=== PATIENT | male | born 1970 | race American Indian/Alaskan Native ===

== ENCOUNTER 2016-10-11 11:38 | Inpatient (IN) | payer OTHER ==
--- NOTE | 2016-10-11 12:27 | Emergency Department Report ---
Chief Complaint: Arrhythmia/Palpitations Stated Complaint: CHEST PAIN Time Seen by Provider: 10/11/16 12:22 - HPI History of Present Illness: Patient reports intermittent heart flutter that started years ago, however fluttering started last night and continued until this am - ROS Review of Systems: all other systems are unremarkable except for documentation in HPI - Exam Vital Signs: Vital Signs 10/11/16 11:57 Temperature 98.4 F Pulse Rate 78 Respiratory 18 Rate Blood Pressure 134/88 O2 Sat by Pulse 100 Oximetry Physical Exam: Gen: well developed and nourished, NAD Cardio: heart sounds present S1-S2, no ectopy, murmur or gallops Resp: even and unlabored, lungs CTA beatriz, no wheezes, rales or rhonchi MSE screening note: Focused history and physical exam performed. Due to findings the following was ordered: laboratory and radiology study ordered ED Disposition for MSE Condition: Stable
--- NOTE | 2016-10-11 13:03 | XRay Report ---
ROUTINE CHEST, TWO VIEWS: HISTORY: Dysrhythmia, palpitations. The trachea, heart, mediastinal contour, lung reinoso and bony thorax are unremarkable. IMPRESSION: Unremarkable chest x-ray.
[2016-10-11 13:14] LABS: Basophils % (Auto) 1.2 % (0.0-1.8); Hematocrit 46.7 % (35.5-45.6); Hemoglobin 15.5 gm/dl (11.8-15.2); Mean Corpuscular HGB Conc 33 % (32-34); Mean Corpuscular Hemoglobin 28 pg (28-32); Mean Corpuscular Volume 85 fl (84-94); Platelet Count 257 K/mm3 (140-440); Red Blood Count 5.47 M/mm3 (3.65-5.03); Red Cell Distribution Width 14.8 % (13.2-15.2); White Blood Count 5.6 K/mm3 (4.5-11.0)
[2016-10-11 13:25] LABS: INR 1.04 (0.87-1.13)
[2016-10-11 13:28] LABS: Creatine Kinase MB 1.5 ng/mL (0.0-4.0)
[2016-10-11 13:30] LABS: Alanine Aminotransferase 10 units/L (7-56); Albumin/Globulin Ratio 1.2 %; Alkaline Phosphatase 74 units/L (35-129); Bilirubin,Total 0.3 mg/dL (0.1-1.2); Blood Urea Nitrogen 8 mg/dL (9-20); Calcium 9.1 mg/dL (8.4-10.2); Carbon Dioxide 27 mmol/L (22-30); Chloride 98.9 mmol/L (98-107); Glucose 83 mg/dL (75-100); Potassium 4.3 mmol/L (3.6-5.0); Sodium 138 mmol/L (137-145); Total Protein 7.4 g/dL (6.3-8.2)
[2016-10-11 13:33] LABS: Anion Gap 16 mmol/L
[2016-10-11] MEDS ORDERED: NITRO-BID 2% TP ONE (22:21)
[2016-10-11] MEDS ORDERED: ASPIRIN PO ONE (22:22)
--- NOTE | 2016-10-11 22:35 | Emergency Department Report ---
HPI - General Chief Complaint: Arrhythmia/Palpitations Time Seen by Provider: 10/11/16 22:08 - HPI HPI: Room 18 The patient is a 46-year-old male presenting with a chief complaint of palpitations and chest discomfort. The patient states his heart has been "fluttering" for years but usually only lasts a couple seconds. The patient states last night the fluttering was prolonged lasting hours. It was still present when he awakened this morning. The patient complains of left chest discomfort when the fluttering is present and he breathes deeply. Patient denies shortness of breath and nausea/vomiting but does admit to occasional diaphoresis. The patient states he has never sought medical attention for the above complaints. Patient states he's never had a stress test or cardiac catheterization Location: Left chest Duration: [see above] Quality: Discomfort Severity: Currently 0/10 Modifying factors: [see above] Context: [see above] Mode of transportation: Unknown ED Past Medical Hx - Past Medical History Previous Medical History?: No - Surgical History Past Surgical History?: No - Family History Family history: no significant - Social History Smoking Status: Never Smoker (patient chews tobacco) Substance Use Type: None (denies illicit drug use), Alcohol (consumes 4-5 beers daily) - Medications Home Medications: Home Medications Medication Instructions Recorded Confirmed Last Taken Type No Known Home Medications [No 10/11/16 10/11/16 Unknown History Reported Home Medications] ED Review of Systems ROS: Stated complaint: CHEST PAIN Other details as noted in HPI Comment: All other systems reviewed and negative Constitutional: diaphoresis. denies: chills, fever Eyes: denies: eye pain, eye discharge, vision change ENT: denies: ear pain, throat pain Respiratory: denies: cough, shortness of breath, wheezing Cardiovascular: chest pain, palpitations Endocrine: no symptoms reported Gastrointestinal: denies: abdominal pain, nausea, diarrhea Genitourinary: denies: urgency, dysuria Musculoskeletal: denies: back pain, joint swelling, arthralgia Skin: denies: rash, lesions Neurological: denies: headache, weakness, paresthesias Psychiatric: denies: anxiety, depression Hematological/Lymphatic: denies: easy bleeding, easy bruising Physical Exam - Physical Exam Vital Signs: Vital Signs 10/11/16 10/11/16 10/11/16 11:57 21:15 21:35 Temperature 98.4 F 97.9 F Pulse Rate 78 61 68 Respiratory 18 18 18 Rate Blood Pressure 134/88 149/95 Blood Pressure 135/83 [Right] O2 Sat by Pulse 100 100 98 Oximetry Physical Exam: GENERAL: The patient is well-developed well-nourished male lying on stretcher not appearing to be in acute distress. [] HEENT: Normocephalic. Atraumatic. Extraocular motions are intact. Patient has moist mucous membranes. NECK: Supple. Trachea midline CHEST/LUNGS: Clear to auscultation. There is no respiratory distress noted. HEART/CARDIOVASCULAR: Regular. There is no tachycardia. There is no gallop rub or murmur. ABDOMEN: Abdomen is soft, nontender. Patient has normal bowel sounds. There is no abdominal distention. SKIN: There is no rash. There is no edema. There is no diaphoresis. NEURO: The patient is awake, alert, and oriented. The patient is cooperative. The patient has normal speech MUSCULOSKELETAL: There is no evidence of acute injury. ED Course Vital Signs 10/11/16 10/11/16 10/11/16 11:57 21:15 21:35 Temperature 98.4 F 97.9 F Pulse Rate 78 61 68 Respiratory 18 18 18 Rate Blood Pressure 134/88 149/95 Blood Pressure 135/83 [Right] O2 Sat by Pulse 100 100 98 Oximetry ED Medical Decision Making - Lab Data Result diagrams: 10/11/16 12:59 10/11/16 12:59 Laboratory Tests 10/11/16 10/11/16 10/11/16 12:59 12:59 12:59 WBC 5.6 RBC 5.47 H Hgb 15.5 H Hct 46.7 H MCV 85 MCH 28 MCHC 33 RDW 14.8 Plt Count 257 Lymph % (Auto) 27.6 [place] % (Auto) 9.1 H Eos % (Auto) 1.0 Baso % (Auto) 1.2 Lymph # 1.6 [place] # 0.5 Eos # 0.1 Baso # 0.1 Seg Neutrophils % 61.1 Seg Neutrophils # 3.4 PT 13.5 INR 1.04 APTT 30.0 Sodium 138 Potassium 4.3 Chloride 98.9 Carbon Dioxide 27 Anion Gap 16 BUN 8 L Creatinine 0.8 Estimated GFR > 60 BUN/Creatinine Ratio 10.00 Glucose 83 Calcium 9.1 Magnesium Total Bilirubin 0.3 AST 16 ALT 10 Alkaline Phosphatase 74 Total Creatine Kinase CK-MB (CK-2) CK-MB (CK-2) Rel Index Troponin T Total Protein 7.4 Albumin 4.0 Albumin/Globulin Ratio 1.2 10/11/16 10/11/16 12:59 15:34 WBC RBC Hgb Hct MCV MCH MCHC RDW Plt Count Lymph % (Auto) [place] % (Auto) Eos % (Auto) Baso % (Auto) Lymph # [place] # Eos # Baso # Seg Neutrophils % Seg Neutrophils # PT INR APTT Sodium Potassium Chloride Carbon Dioxide Anion Gap BUN Creatinine Estimated GFR BUN/Creatinine Ratio Glucose Calcium Magnesium 2.0 Total Bilirubin AST ALT Alkaline Phosphatase Total Creatine Kinase 133 CK-MB (CK-2) 1.5 CK-MB (CK-2) Rel Index 1.1 Troponin T < 0.010 Total Protein Albumin Albumin/Globulin Ratio - EKG Data -: EKG Interpreted by Me EKG shows normal: sinus rhythm Rate: normal - EKG Data When compared to previous EKG there are: previous EKG unavailable Interpretation: normal EKG - Radiology Data Radiology results: image reviewed (chest x-ray) interpreted by me: Chest x-ray- no focal infiltrates, no pneumothorax - Differential Diagnosis ACS, dysrhythmia, pericarditis, pneumothorax, pleurisy Critical care attestation.: If time is entered above; I have spent that time in minutes in the direct care of this critically ill patient, excluding procedure time. ED Disposition Clinical Impression: Chest pain, Palpitations Disposition: OP ADMITTED IP TO THIS HOSP Is pt being admited?: Yes Does the pt Need Aspirin: Yes Condition: Fair Instructions: Chest Pain (ED) Time of Disposition: 22:40 (hospitalist paged)
--- NOTE | 2016-10-12 00:26 | History and Physical Report ---
History of Present Illness Date of examination: 10/12/16 History of present illness: 38-year-old man with no medical problem comes emergency room with complaints of palpitations rate is been having palpitations since the age of 20, they were short-lived lasting for a few minutes. He was evaluated wands, he was told he needed surgery but he declined. Last night his palpitation has been constant so he came to the emergency room for evaluation. He denies chest pain, lightheadedness Patient denies chest pain, , shortness of breath, cough, abdominal pain, hematochezia, dysuria, frequency, focal weakness, dysarthria, fever chills, polydipsia polyuria, hot or cold intolerance, easy bruisability, or rash or bleeding from mucosal membrane, rhinorrhea, epistaxis, earache, tinnitus, blurry vision, eye discharge, anxiety, depression. Other review of systems negative PAST SURGICAL HISTORY: None SOCIAL HISTORY: Drinks sixpack of beer a day, quit tobacco use , no drugs FAMILY HISTORY: Hypertension Medications and Allergies Allergies Allergy/AdvReac Type Severity Reaction Status Date / Time No Known Allergies Allergy Verified 10/11/16 21:36 Home Medications Medication Instructions Recorded Confirmed Last Taken Type No Known Home Medications [No 10/11/16 10/11/16 Unknown History Reported Home Medications] Exam - Physical Exam Narrative exam: Gen. appearance: Patient lying in bed, no apparent distress HEENT: Normocephalic, atraumatic, pupils equally round and reactive to light, extraocular movement intact, and no sclericterus,. No JVD or thyromegaly or nodule,neck supple, no carotid bruit ,mucous membranes moist, no exudate or erythema Heart: S1, S2, regular rate and rhythm Lungs: Clear to auscultation bilaterally, breathing comfortable Abdomen: Positive bowel sounds, nontender, nondistended, no organomegaly Extremity: No edema, cyanosis, clubbing Skin: No rash, nodules, warm, dry Neuro: Oriented 3, cranial nerves II-12 intact, speech is fluent, motor and sensory intact - Constitutional Vitals: Temp Pulse Resp BP Pulse Ox 97.9 F 68 18 135/83 98 10/11/16 21:15 10/11/16 21:35 10/11/16 21:35 10/11/16 21:35 01/09/17 21:35 Results - Labs CBC & Chem 7: 10/11/16 12:59 10/11/16 12:59 Labs: Abnormal lab results 10/11/16 10/11/16 Range/Units 12:59 12:59 RBC 5.47 H (3.65-5.03) M/mm3 Hgb 15.5 H (11.8-15.2) gm/dl Hct 46.7 H (35.5-45.6) % [place] % (Auto) 9.1 H (0.0-7.3) % BUN 8 L (9-20) mg/dL - Imaging and Cardiology EKG: image reviewed Chest x-ray: report reviewed Assessment and Plan Palpitations Admits medicine Check cardiac enzymes, echo, TSH, consult cardiology Start DVT prophylaxis
--- NOTE | 2016-10-12 01:27 | Admit Criteria Form ---
Admission Criteria Documentation: CARDIOLOGY GRG Clinical Indications for Admission to Inpatient Care ( Place 'X' for any and all applicable criteria): Hospital admission is needed for appropriate care of the patient because of ANY ONE of the following (1): [ ] I. Hemodynamic instability as indicated by ALL of the following (1)(2)(3) (4)(5) [ ]a) Vital signs or other findings not as expected for chronic patient condition or baseline [ ]b) Instability indicated by ANY ONE of the following: [ ]i) Hypotension [ ]ii) Symptomatic Tachycardia unresponsive to treatment ( e.g., analgesia, fluids, sedation as indicated) [ ]iii) Inadequate perfusion indicated by ANY ONE of the following: [ ] 1) Lactic acidosis (> 2 mmol/L) [ ] 2) New abnormal capillary refill (> 3 seconds) [ ] 3) Reduced urine output [ ] 4) New altered mental status [ ]iv) Orthostatic vital sign changes unresponsive to treatment (e.g., fluids) [ ]v) IV inotropic or vasopressor medication required to maintain adequate blood pressure or perfusion [ ] II. Severe heart failure as indicated by ANY ONE of the following(17)(18) [ ]a) Respiratory distress [ ]b) Hypotension [ ]c) Anasarca (refractory to outpatient therapy) [ ]d) Cardiac arrhythmias of immediate concern [ ]e) Myocardial ischemia [ ] III. Cardiac arrhythmias or findings of immediate concern indicated by ANY ONE of the following (19)(20): [ ] a) Heart rhythms that are inherently dangerous or unstable indicated by ANY ONE of the following (21)(22)(23): [ ] i) Resuscitated ventricular fibrillation or cardiac arrest [ ] ii) Ventricular escape rhythm [ ] iii) Sustained ventricular tachycardia (30 seconds or more of ventricular rhythm at greater than 100 beats per minute) [ ] iv) Nonsustained ventricular tachycardia and ANY ONE of the following: [ ] 1) Suspected cardiac ischemia as cause or consequence of ventricular tachycardia [ ] 2) In setting of acute myocarditis [ ] b) Unstable cardiac conduction defects indicated by ANY ONE of the following(23)(24)(25) [ ] i) Type II second-degree atrioventricular block [ ]ii) Third-degree atrioventricular block [ ]iii) New-onset left bundle branch block with suspected myocardial ischemia [ ]c) Any heart rhythm and ANY ONE of the following (21)(22)(26)(27) (28) [ ] i) Continuous long-term ECG monitoring needed (e.g., initiation of drug requiring monitoring for more than 24 hours) [ ] ii) Patient has automatic implanted cardioverter defibrillator that is repeatedly firing, malfunctioning, or in need of immediate adjustment of settings beyond the scope of ambulatory or observation care [ ]d) Heart rhythms of concern due to ANY ONE of the following: [ ] i) Hypotension [ ] ii) Respiratory distress [ ] iii) Association with other significant symptoms (e.g., bradycardia with syncope or ongoing dizziness, supraventricular tachycardia with chest pain (14)(15)(17) [ ] IV. Monitoring for cardiac contusion beyond the scope of observation care needed [A](30)(31)(32) [ ] V. Surgical or device complication (e.g., valve replacement complication , pacemaker dysfunction) (35)(41)(44)(45)(46) [ ] . Inpatient palliative care needed. [B](49) Also use Inpatient Palliative Care Criteria [ ] VII. Nonbacterial thrombotic (marantic) endocarditis (36)(43)(47)(48) [X ] VIII. Cardiology condition, symptom, or finding for which emergency and observation care has failed or are not considered appropriate. [ ] IX. Acute valvular disease requiring inpatient as indicated by ANY ONE of the following (41) [ ]a) Acute valvular regurgitation (42) [ ]b) Noninfectious valvulitis (43) [ ]c) Obstructive valve thrombosis [ ]d) Paravalvular leak [ ]e) Other significant valvular disorder remaining after emergency or observation level of care (as appropriate) [ ]X. Pericardial disease requiring inpatient treatment as indicated by ANY ONE of the following (33)(34)(35)(36)(37) [ ]a) Suspected tamponade (38)(39)(40) [ ]b) Hemopericardium [ ]c) Other significant pericardial disorder remaining after emergency or observation level of care (as appropriate) [ ] XI. Cardiac ischemia beyond scope of emergency and observation care. [ ] XII. Hypertension requiring inpatient treatment as indicated by ANY ONE of the following (6)(7)(8) [ ]a) SBP greater than 220 mm Hg or DBP greater than 120 mmHg despite treatment [ ]b) SBP greater than 140 mm Hg or DBP greater than 100 mm Hg with evidence of acute end organ damage as indicated by ANY ONE of the following [ ] i) Altered mental status [ ] ii) Acute renal failure as indicated by new onset of ANY ONE of the following (9)(10)(11)(12)(13) [ ]1) 3-fold rise in serum creatinine from baseline [ ]2) Serum creatinine greater than 4 mg/dL ( 354 micromoles/L) with acute rise greater than 0.5 mg/dL (44.2 micromoles/L) [ ]3) Reduction of more than 75% in estimated glomerular filtration rate from baseline [ ]4) Estimated glomerular filtration rate less than 35 mL/min/1.73m2 (0.59 mL/sec/1.73m2) in child up to 18 years of age [ ]5) Cessation of urine output indicated by ALL of the following [ ]A. Adequate volume status [ ]B. Inadequate urine output as indicated by ANY ONE of the following [ ]a. Urine output less than 0.3 mL/kg/hr for 24 hours [ ]b. Anuria (urine output less than 0.1 mL/kg/hr) for 12 hours [ ] iii) Aortic dissection [ ] iv) Myocardial Ischemia [ ] v) Left ventricular heart failure [ ]vi) Retinal Hemorrhage [ ]vii) Other significant finding [ ]c) Hypertension in child requiring inpatient treatment as indicated by ALL of the following(14)(15)(16) [ ] i) Outpatient treatment not effective, not available, or not appropriate [ ]ii) SBP or DBP greater than 95th percentile for age [ ]iii) Evidence of acute end organ damage as indicated by ANY ONE of the following [ ]1) Altered mental status [ ]2) Acute renal failure as indicated by new onset of ANY ONE of the following(9)(10)(11)(12)(13) [ ]A. 3-fold rise in serum creatinine from baseline [ ]B. Serum creatinine greater than 4 mg/dL (354 micromoles/L) with acute rise greater than 0.5 mg/dL (44.2 micromoles/L) [ ]C. Reduction of more than 75% in estimated glomerular filtration rate from baseline [ ]D. Estimated glomerular filtration rate less than 35 mL/min/1.73m2 (0.59 mL/sec/1.73m2) in child up to 18 years of age [ ]E. Cessation of urine output indicated by ALL of the following [ ]a. Adequate volume status [ ]b. Inadequate urine output as indicated by ANY ONE of the following [ ]i) Urine output less than 0.3 mL/kg/hr for 24 hours [ ]ii) Anuria ( urine output less than 0.1 mL/kg/hr) for 12 hours [ ]3) Severe headache [ ]4) Visual disturbance [ ]5) Retinal hemorrhage [ ]6) Other significant finding [ ]XIII. Complications of transplanted heart indicated by ANY ONE of the following(61): [ ]a) Acute graft rejection requiring inpatient management (eg, intravenous immunosuppression)(62)(63) [ ]b) Acute graft heart failure indicated by ANY ONE of the following(64): [ ]i) Hemodynamic instability [ ]ii) Cardiac arrhythmias of immediate concern [ ]iii) Pulmonary edema that is very severe (eg, mechanical ventilation needed, imminent or likely, need for 100% oxygen to keep oxygen saturation above 90%) [ ]iv) Pulmonary edema that is persistent as indicated by ALL of the following: [ ]1) New need for oxygen therapy to keep oxygen saturation above 90% (or increased FiO2 need from baseline) [ ]2) Has not improved sufficiently with emergency department or observation care IV diuretics or other heart failure treatments[E] [ ]v) Altered mental status that is severe or persistent [ ]vi) Increased creatinine (new on laboratory test) with reduction of more than 50% in estimated glomerular filtration rate from baseline [ ]vii) Progressively (ongoing) rising creatinine (known from past laboratory test) with reduction of more than 25% in estimated glomerular filtration rate from baseline [ ]viii) Acute renal failure [ ]ix) Acute peripheral ischemia (eg, examination shows pulseless, cool, mottled, or cyanotic extremity) [ ]x) Pulmonary artery catheter monitoring needed [ ]xi) Other sign or symptom of heart failure requiring inpatient treatment (ie, too severe or not responsive to outpatient and observation care treatment) [ ]c) Infection requiring inpatient management (eg, Hemodynamic instability, need for intravenous antimicrobial treatment)(66)(67)(68)(69)(70) [ ]d) Cardiac allograft vasculopathy requiring inpatient management ( eg evidence of cardiac ischemia)(71) [ ]e) Other complication of transplanted heart (eg, stroke, severe pulmonary hypertension, severe valvular dysfunction) requiring inpatient management(72) The original [facility] [employer] content created by [facility] has been revised. The portions of the content which have been revised are identified through the use of italic text or in bold, and [facility] has neither reviewed nor approved the modified material. All other unmodified content is copyright [facility] [employer]. Please see references footnoted in the original [facility] [employer] edition 2016 Admission Criteria Met: Yes
[2016-10-12] MEDS ORDERED: DULCOLAX PR PRN (04:37)
[2016-10-12] MEDS ORDERED: PERCOCET 5/325 PO PRN (04:37)
[2016-10-12] MEDS ORDERED: MILK OF MAGNESIA PO PRN (04:37)
[2016-10-12] MEDS ORDERED: ZOFRAN IV PRN (04:37)
[2016-10-12] MEDS ORDERED: TYLENOL PO PRN (04:37)
[2016-10-12 06:53] LABS: Creatine Kinase MB 1.4 ng/mL (0.0-4.0)
[2016-10-12 06:55] LABS: Creatine Kinase 119 units/L (55-170)
[2016-10-12 08:40] VITALS: BP 101/63
[2016-10-12] MEDS ORDERED: LOVENOX SUB-Q SCH (10:00)
[2016-10-12 11:11] LABS: Creatine Kinase 116 units/L (55-170); Creatine Kinase MB 1.4 ng/mL (0.0-4.0)
--- NOTE | 2016-10-12 11:27 | Consultation ---
History of Present Illness Consult date: 10/12/16 Consult reason: other (Palpitations) History of present illness: This is a 46yr old male who presented with palpitations. Patient reports palpitations has been intermittent for several years but yesterday patient reports the duration of his palpitations was concerning. He admits to drinking 4 -5 beers and taking several shots of alcohol on yesterday. He had no chest pain , nausea vomiting or shortness of breath. His presenting ECG is benign, a normal sinus rhythm. TSH and magnesium lab results are normal. No events on telemetry monitoring. Patient has no prior cardiac history. He denies prior cardiac evaluation and workup. Cardiology consultation requested for further evaluation. Medications and Allergies Allergies Allergy/AdvReac Type Severity Reaction Status Date / Time No Known Allergies Allergy Verified 10/11/16 21:36 Home Medications Medication Instructions Recorded Confirmed Last Taken Type No Known Home Medications [No 10/11/16 10/11/16 Unknown History Reported Home Medications] Active Meds: Active Medications Acetaminophen (Tylenol) 650 mg PO Q4H PRN PRN Reason: Pain MILD(1-3)/Fever >100.5/BENITEZ Bisacodyl (Dulcolax) 10 mg WI QDAY PRN PRN Reason: Constipation unrelieved by MOM Enoxaparin Sodium (Lovenox) 40 mg SUB-Q QDAY [place]AV[place]LE Last Admin: 10/12/16 10:53 Dose: 40 mg Magnesium Hydroxide (Milk Of Magnesia) 30 ml PO Q4H PRN PRN Reason: Constipation Ondansetron HCl (Zofran) 4 mg IV Q8H PRN PRN Reason: N/V unrelieved by Reglan Oxycodone/Acetaminophen (Percocet 5/325) 1 tab PO Q6H PRN PRN Reason: Pain, Moderate (4-6) Physical Examination Vital Signs Temp Pulse Resp BP Pulse Ox 98.4 F 78 18 134/88 100 10/11/16 11:57 10/11/16 11:57 10/11/16 11:57 10/11/16 11:57 10/11/16 11:57 General appearance: no acute distress HEENT: Positive: PERRL Neck: Positive: trachea midline Cardiac: Positive: Reg Rate and Rhythm Lungs: Positive: Normal Breath Sounds Neuro: Positive: Grossly Intact Results 10/11/16 12:59 10/11/16 12:59 Cardiac Enzymes 10/12/16 10/12/16 Range/Units 04:56 10:37 CK-MB (CK-2) 1.4 1.4 (0.0-4.0) ng/mL EKG interpretations - Telemetry EKG Rhythm: Sinus Rhythm Assessment and Plan Palpitations normal TSH and magnesium no events on telemetry
--- NOTE | 2016-10-12 11:42 | Discharge Summary ---
Providers - Providers Date of Admission: 10/12/16 00:23 Date of discharge: 10/12/16 Attending physician: JULIENNE CONNER Primary care physician: [employer]MENT TECHNICIAN Hospitalization Condition: Fair Disposition: DISCHARGED TO HOME OR SELFCARE Core Measure Documentation - Palliative Care Palliative Care/ Comfort Measures: Not Applicable - Core Measures Any of the following diagnoses?: none Exam - Constitutional Vitals: Temp Pulse Resp BP Pulse Ox 98.0 F 63 18 101/63 99 10/12/16 08:00 10/12/16 08:00 10/12/16 08:00 10/12/16 08:00 10/12/16 08:00 General appearance: Present: no acute distress, well-nourished - EENT Eyes: Present: PERRL, EOM intact - Neck Neck: Present: supple, normal ROM - Respiratory Respiratory effort: normal Respiratory: negative: rales, rhonchi, wheezing - Cardiovascular Rhythm: regular Heart Sounds: Present: S1 & S2 - Extremities Extremities: no ischemia, pulses intact, pulses symmetrical Peripheral Pulses: within normal limits - Abdominal General gastrointestinal: Present: soft, non-tender, non-distended, normal bowel sounds - Integumentary Integumentary: Present: clear, warm - Musculoskeletal Musculoskeletal: strength equal bilaterally - Psychiatric Psychiatric: appropriate mood/affect, cooperative - Neurologic Neurologic: CNII-XII intact, moves all extremities Plan Activity: no restrictions Diet: regular Follow up with: ARCELIA FLORES MD [Primary Care Provider] - 3-5 Days EUSEBIA CROFT MD [Staff Physician] - 7 Days Forms: AMA Form
--- NOTE | 2016-10-12 14:41 | Event Note ---
[id number] home before cardiac consultation was completed. Patient should follow up with [facility] in 1wk. <EUSEBIA CROFT - Last Filed: 10/14/16 16:11> The patient was already discharged by the primary admitting team, before cardiac consultation could be performed and completed. He now office If indicated, please have the patient up in our office within one week.
== END 2016-10-12 12:01 | disposition home or self-care (01) | DRG 310 ==
LOC: ED 11:38 → 4A 10-12 00:23
PROVIDERS: ADMIT Internal Medicine; ATTEND Internal Medicine
DX: R00.2 Palpitations (principal); F10.20 Alcohol dependence, uncomplicated; Z82.49 Family history of ischemic heart disease and other diseases of the circulatory system
CPT/HCPCS: 36415; 71020; 80053; 82550; 82553; 83735; 84439; 84443; 84484; 85025; 85610; 85730; 93005; 93010; 96372; J1650